=== PATIENT | female | born 1995 | race African-American/Black ===

== ENCOUNTER 2020-10-23 19:10 | Emergency (ER) | payer OTHER, SELFPAY ==
[2020-10-23 19:22] VITALS: BP 130/81; PULSE 100; RESP 16; TEMP 36.8; O2SAT 100
--- NOTE | 2020-10-23 19:48 | ED.GENADULT ---
HPI - General Adult General Chief complaint: Upper Respiratory Infection Stated complaint: Sore Throat, Body Aches Time Seen by Provider: 10/23/20 19:49 Source: patient and RN notes reviewed Mode of arrival: ambulatory Limitations: no limitations History of Present Illness HPI narrative: 25-year-old -[place] female presents with complaints of sore throat and body aches for 1 day. Nunu reports symptoms increased throughout the day with increase pain and body aches. DayQuil without relief. Nunu reports no high fevers, drooling, neck or throat swelling. Pain is bilateral. Hurts to swallow. Exacerbation factors consist of eating and drinking. No rhinorrhea. Nasal congestion. No voice change. No nausea, vomiting, or abdominal pain. Tolerating liquids well. Denies chills, dyspnea, difficulty swallowing, jaw pain, dental pain, facial pain, foreign body sensation, and rash. LMP 09/13/20, Nunu denies being reports she has irregular menstrual cycles. Remains active. The patient reports she have not been diagnosed with COVID-19. The patient reports she is not waiting for the results of a COVID-19 lab test. The patient reports she do not have fever, chills, weakness, or fatigue. The patient reports she do not have a new or worsening cough or shortness of breath. Denies chest pain. The patient reports she do not have any loss of taste or diarrhea. Nunu reports she is here visiting from [facility]. Denies concerns for COVID-19 or exposures been home with limited outdoor exposure except for essential household needs, school, and return home. At this time, patient is suspected of having COVID-19. Some parts of this dictation were generated by voice recognition software and may contain typographical and/or grammatical inaccuracies. Related Data Allergies Allergy/AdvReac Type Severity Reaction Status Date / Time No Known Allergies Allergy Verified 10/23/20 19:34 Review of Systems Review of Systems: Narrative: CONSTITUTIONAL: Denies fever, chills, sweats. Complains of body aches. EYES: Denies visual changes, redness, discharge. ENT: Denies rhinorrhea, otalgia. Complains of sore throat, congestion. CARDIOVASCULAR: Denies chest pain, palpitations, edema. RESPIRATORY: Denies dyspnea, wheezing, cough. GASTROINTESTINAL: Denies abdominal pain, nausea, vomiting, diarrhea. SKIN: Denies rash or itching. MUSCULOSKELETAL: Denies acute back pain, joint pain, or myalgia. NEUROLOGIC: Denies numbness or focal weakness. PSYCHIATRIC: Denies anxiety or depression. All systems reviewed & are unremarkable except as noted in HPI and below. [facility] Past Medical History Medical History (Updated 10/24/20 @ 00:00 by Miguel Damarci) No significant past medical history Surgical History Surgical History (Updated 10/23/20 @ 20:07 by THA Chapa) No significant past surgical history Family History Family History (Updated 10/23/20 @ 20:07 by THA Chapa) Father Hypertension Mother Hypertension Social History Social History (Updated 10/23/20 @ 20:08 by THA Chapa) Smoking status: Never smoker Tobacco type: cigarettes Second hand tobacco smoke exposure: No Alcohol intake: current Substance use: never Living arrangements: with family Occupation/Education: student Gender identity (if verbalized by the patient): Female Sexual Orientation (if Verbalized by the Patient): Straight or Heterosexual Comments At time of signature, agree with nurse past medical, surgical, social, and family history. There is no relevant family history pertinent to the presenting complaint. Exam Narrative: Exam Narrative: GENERAL: This is a well-nourished, well-developed patient, in no apparent distress. Speaks in full sentences without deficits and ambulates with steady gait without dyspnea. HEAD: normocephalic, atraumatic. EYES: PERRL. Sclera clear/white. Vision is grossly intact. EA
== END 2020-10-23 20:10 | disposition home or self-care (01) ==
PROVIDERS: Emergency Provider Nurse Practitioner Family
DX: J02.9 Acute pharyngitis, unspecified (principal); Z20.828 Contact with and (suspected) exposure to other viral communicable diseases
CPT/HCPCS: 87081; 87804; 87880; 99203; G0463